=== PATIENT | female | born 1975 | race Asian ===

== ENCOUNTER 2016-09-23 17:13 | Emergency (ER) | payer OTHER ==
[~2016-09-23] VITALS: Ht 152.4 cm; Wt 61.2 kg
[~2016-09-23 17:13] MED LIST: BENZONATATE200 M1 PO; DOCUSATE SODIU100 MG PO; IBUPROFEN800 MG PO; MEDROL4 M2 PO; PERCOCET 325 MG1 TA2 PO
--- NOTE | 2016-09-23 17:41 | ED INFLUENZA/URI COMPLAINT ---
History of Present Illness General Chief Complaint: General Adult Stated Complaint: BODY ACHES Source: patient Exam Limitations: no limitations Vital Signs & Intake/Output Vital Signs & Intake/Output Vital Signs Date Time Temp Pulse Resp B/P Pulse O2 O2 Flow FiO2 Ox Delivery Rate 09/24 1947 97.2 63 16 96/57 100 Room Air 09/23 1716 100.7 81 18 102/65 99 Room Air Allergies Coded Allergies: NO KNOWN ALLERGIES (03/24/16) Reconcile Medications Ibuprofen 800 MG TABLET 1 TAB PO TID body aches Triage Note: PT TO TRIAGE WITH C/O FEVER, BODY ACHES, HEADACHE SINCE THIS MORNIG. TEMP 100.7 IN TRIAGE. NO OTHER COMPLAINTS. Triage Nurses Notes Reviewed? yes Onset: Abrupt Duration: hour(s):, constant, continues in ED Timing: recent history Severity: moderate, severe No Modifying Factors: none : No Patient currently breastfeeds: No HPI: 41-year-old female comes into emergency room for further evaluation of fever chills body aches. Patient reports symptoms began this morning. Diffuse body aches. Increased frequency of urination. Associated headache and back pain. Denies any runny nose or cough. Associated mild sore throat this morning but that has since resolved. Denies any other associated symptoms. (SWAPNA GREEN) Past History Travel History Traveled to [place] past 21 day No Medical History Any Pertinent Medical History? 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 No (SWAPNA GREEN) Review of Systems Review of Systems Constitutional: Reports: see HPI. EENTM: Reports: no symptoms. Respiratory: Reports: no symptoms. Cardiovascular: Reports: no symptoms. GI: Reports: no symptoms. Genitourinary: Reports: no symptoms. Musculoskeletal: Reports: see HPI. Skin: Reports: no symptoms. Neurological/Psychological: Reports: no symptoms. Hematologic/Endocrine: Reports: no symptoms. Immunologic/Allergic: Reports: no symptoms. All Other Systems: Reviewed and Negative (SWAPNA GREEN) Physical Exam Physical Exam General Appearance: well developed/nourished, no apparent distress, alert Head: atraumatic, normal appearance Eyes: Bilateral: normal appearance, EOMI. Ears, Nose, Throat: normal ENT inspection, moist mucous membrane Neck: normal inspection Respiratory: normal breath sounds, no respiratory distress Cardiovascular: regular rate/rhythm Gastrointestinal: soft Back: normal inspection, normal range of motion Extremities: normal inspection Neurologic/Psych: awake, alert, oriented x 3, normal gait Skin: intact, normal color Core Measures Severe Sepsis Present: No Septic Shock Present: No (SWAPNA GREEN) Progress Differential Diagnosis: influenza, meningitis, neutropenia, otitis, pneumonia, pharyngitis, sinusitis, mild syndrome, UTI, Plan of Care: Orders Procedure Date/time Status RAPID VIRAL INFLUENZA A 09/23 1740 Complete THROAT CULTURE W/QUICK STREP 09/23 1740 Active URINE 09/23 1740 Complete URINALYSIS 09/23 1740 Complete Laboratory Tests 09/23/16 1808: Urine Color STRAW, Urine Clarity CLEAR, Urine pH 7.5, Ur Specific [place] 1.010, Urine Protein NEG, Urine Ketones NEG, Urine Nitrite NEG, Urine Bilirubin NEG, Urine Urobilinogen 0.2, Ur Leukocyte Esterase NEG, Ur Microscopic EXAM NOT REQUIRED, Urine Hemoglobin NEG, Urine Glucose NEG, Urine Test NEGATIVE Microbiology 09/23 1750 NASOPHARYN: Influenza Virus A & B Rapid Smear - COMP Initial ED EKG: none (SWAPNA GREEN) Departure Departure Disposition: HOME OR SELF CARE Condition: Stable Clinical Impression Primary Impression: Viral syndrome Referrals: YURY CORRALES MD (PCP/Family) Additional Instructions: Take ibuprofen as prescribed. Rest. Drink plenty of fluids. If you're not feeling better in 3 days return to the emergency room for further evaluation. Departure Forms: Customer Survey General Discharge Information Prescriptions: Current Visit Scripts Ibuprofen 1 TAB PO TID #20 TAB Comments 09/23/2016 8:24:56 PM Patient clinically looks well. Symptoms are most consistent with viral illness. Follow-up with primary care doctor if not better in 3-5 days. Return if any other concerns. Plenty of fluids. No nuchal rigidity. No neck pain. No suspicion for meningitis. Patient understands and agrees up care. Patient feels significantly better after the Toradol that was administered here. Patient keeps asking when she can go home. Patient is ready to be discharged. I do not feel any further workup is needed at this time. (RONNY BOLAÑOS,SWAPNA) PA/PROCESS SAFETY MANAGER Co-Sign Statement Statement: ED Attending supervision documentation- [] I saw and evaluated the patient. I have also reviewed all the pertinent lab results and diagnostic results. I agree with the findings and the plan of care as documented in the PA's/PROCESS SAFETY MANAGER's documentation. [x] I have reviewed the ED Record and agree with the PA's/PROCESS SAFETY MANAGER's documentation. [] Additions or exceptions (if any) to the PAs/PROCESS SAFETY MANAGER's note and plan are summarized below: [] (YULY WEINBERG,SABINE Hough)
[2016-09-23] MEDS ORDERED: IBUPROFEN800 M1 PO (19:46)
[2016-09-23 19:48] VITALS: BP 96/57
== END 2016-09-23 19:53 ==
LOC: ERH 17:13
DX: B34.9 Viral infection, unspecified (principal)
CPT/HCPCS: 81003; 81025; 87804; 87804-59; 96372; J1885

== ENCOUNTER 2016-10-06 20:51 | Emergency (ER) | payer OTHER ==
[~2016-10-06 20:51] MED LIST changes: +IBUPROFEN800 M1 PO
[2016-10-06 21:16] VITALS: BP 115/75
--- NOTE | 2016-10-06 21:49 | ED SKIN/ALLERGY COMPLAINT ---
History of Present Illness General Chief Complaint: Skin Rash/ Abcess Stated Complaint: "RASH ON CHEST AND ARMS" Source: patient Exam Limitations: no limitations Vital Signs & Intake/Output Vital Signs & Intake/Output Vital Signs Date Time Temp Pulse Resp B/P B/P Pulse O2 O2 Flow FiO2 Mean Ox Delivery Rate 10/06 2237 16 98 Room Air 10/066 98.2 71 16 115/75 97 Room Air ED Intake and Output 10/07 0000 10/06 1200 Intake Total 0 Output Total Balance 0 Intake, Oral 0 Allergies Coded Allergies: NO KNOWN ALLERGIES (03/24/16) Reconcile Medications Diphenhydramine HCl (Benadryl) 25 MG CAPSULE 1 CAP PO TID PRN ALLERGIC REACTION Famotidine (Pepcid) 20 MG TABLET 1 TAB PO BID PRN ALLERGIC REACTION Hydrocortisone Acetate (Micort-Hc) 2.5 % CREAM.APPL 1 GUILLERMO TOP TID PRN ALLERGIC REACTION Ibuprofen 800 MG TABLET 1 TAB PO TID body aches Methylprednisolone. (Medrol) 4 MG TAB.DS.PK 1 DP PO AD INFLAMMATION 6 on day 1 then reduce by one tablet daily until gone Triage Note: TRIAGE; PT TO ED C/O RASH TO CHEST AND ARMS. [place] AND STARTED TO GET RASH/GIVES TO CHEST AND THEN WENT AGAIN TODAY AND SPREAD TO HER ARMS. STATES THEY ARE ITCHY, DENIES ANY DIFF BREATHING. Triage Nurses Notes Reviewed? yes Onset: Gradual Duration: getting worse Severity: moderate Severity Numbers: 5 Location: torso, extremities Possible Factors: no cause identified : No Patient currently breastfeeds: No HPI: Patient is a 41-year-old female with an unremarkable past medical history presents emergency and that 1 week she had gradual onset of a itching rash to her anterior chest region where today the rash has not spread down her arms. Patient denies any clear etiology of her symptoms denies any new soaps or detergents new medications new pets new residency Denies any throat swelling tongue swelling lip swelling difficulty breathing or swallowing. Patient has not taken any medications for symptoms (XIMENA HASSAN) Past History Travel History Traveled to [place] past 21 day No Medical History Any Pertinent Medical History? 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 No (XIMENA HASSAN) Review of Systems Review of Systems Constitutional: Reports: no symptoms. EENTM: Reports: no symptoms. Respiratory: Reports: no symptoms. Cardiovascular: Reports: no symptoms. GI: Reports: no symptoms. Genitourinary: Reports: no symptoms. Musculoskeletal: Reports: no symptoms. Skin: Reports: see HPI, rash. Neurological/Psychological: Reports: no symptoms. Hematologic/Endocrine: Reports: no symptoms. Immunologic/Allergic: Reports: no symptoms. All Other Systems: Reviewed and Negative (XIMENA HASSAN) Physical Exam Physical Exam General Appearance: no apparent distress, alert, comfortable Comments: Well-developed well-nourished person in no acute distress HEENT: Normal EENT exam, extraocular motion intact, no nystagmus. Pupils equally round and reactive to light and accommodation. Nose is atraumatic. External auditory canal and Tympanic membranes clear. Pharynx normal. No swelling or edema. No tongue swelling no lip swelling no pharyngeal swelling Neck: Supple, no lymphadenopathy, normal range of motion without pain or tenderness No stridor Back: Nontender, no CVA tenderness. Cardiovascular: Regular rate and rhythms no murmurs rubs or gallops, normal JVP Respiratory: Chest nontender. No respiratory distress.breath sounds clear to auscultation bilaterally Abdomen: Soft, nontender nondistended, no appreciable organomegaly. Normal bowel sounds. No ascites Extremity: No edema, no calf tenderness to palpation, normal and equal pulses. Neuro: Alert oriented x3, motor sensory normal, Psych: Mood and affect is normal, memory and judgment is normal. Diagram Body: 1) Noted scattered urticarial raised erythematous rash 2) Noted scattered urticarial raised erythematous rash 3) Noted scattered urticarial raised erythematous rash (XIMENA HASSAN) Progress Differential Diagnosis: abscess/cellulitis, allergic reaction, anaphylaxis, angioedema, asthma, contact dermatitis, drug reaction, erythema multiforme, lyme disease, meningitis/sepsis, piyriasis rosea, urticaria Plan of Care: Due to history of present illness and exam findings or suspicion of allergic reaction rash unspecified. Patient was given prescriptions for antihistamine and anti-inflammatory. No concerns of anaphylaxis or angioedema (XIMENA HASSAN) Departure Departure Disposition: HOME OR SELF CARE Condition: Stable Clinical Impression Primary Impression: Allergic reaction Secondary Impressions: Rash Referrals: YURY CORRALES MD (PCP/Family) Additional Instructions: As discussed you have received prednisone in the emergency room today begin the prescription of Medrol Dosepak tomorrow for your symptoms. Begin the prescription hydrocortisone cream,, Benadryl, Pepcid as directed for your symptoms. If no better on Saturday follow-up with her primary care doctor. Patient is waiting at [facility] pharmacy. If symptoms worsen return to emergency room Departure Forms: Customer Survey General Discharge Information Prescriptions: Current Visit Scripts Famotidine (Pepcid) 1 TAB PO BID PRN ALLERGIC REACTION #6 TAB Methylprednisolone. (Medrol) 1 DP PO AD #1 DP 6 on day 1 then reduce by one tablet daily until gone Diphenhydramine HCl (Benadryl) 1 CAP PO TID PRN ALLERGIC REACTION #12 CAP Hydrocortisone Acetate (Micort-Hc) 1 GUILLERMO TOP TID PRN ALLERGIC REACTION #1 TUBE (XIMENA HASSAN) PA/ICE CREAM FREEZER HELPER Co-Sign Statement Statement: ED Attending supervision documentation- [] I saw and evaluated the patient. I have also reviewed all the pertinent lab results and diagnostic results. I agree with the findings and the plan of care as documented in the PA's/ICE CREAM FREEZER HELPER's documentation. [X] I have reviewed the ED Record and agree with the PA's/ICE CREAM FREEZER HELPER's documentation. [] Additions or exceptions (if any) to the PAs/ICE CREAM FREEZER HELPER's note and plan are summarized below: [] (GHULAM WEINBERG,MOE)
[2016-10-06] MEDS ORDERED: PEPCID20 M1 PO (22:32)
[2016-10-06] MEDS ORDERED: MEDROL4 M2 PO (22:32)
[2016-10-06] MEDS ORDERED: BENADRYL25 MG PO (22:32)
[2016-10-06] MEDS ORDERED: MICORT-HC28.4 GM TOP (22:32)
== END 2016-10-06 22:38 ==
LOC: ERH 20:51
DX: T78.40XA Allergy, unspecified, initial encounter (principal); R21 Rash and other nonspecific skin eruption